=== PATIENT | female | born 1980 | race Caucasian/White ===

== ENCOUNTER 2021-05-14 10:34 | Day surgery (SDC) | payer BC ==
[~2021-05-14 10:34] MED LIST: HYDACE5 PO; MINO50 PO; PHENTERMINE; PROM25 PO; TAMS.4ER PO
[2021-05-14] MEDS ORDERED: SPIR50 PO (17:23)
[2021-05-14] MEDS ORDERED: DOXY100 PO (17:26)
[2021-05-14] MEDS ORDERED: CELEXA40 M1 PO (17:26)
[2021-05-14] MEDS ORDERED: BUDE.25 INH (17:27)
[2021-05-14] MEDS ORDERED: Ventolin/Prove6.7 GM INH (17:28)
== END 2021-05-14 19:25 | disposition home or self-care (01) ==
LOC: ATC 10:34
DX: U07.1 COVID-19 (principal); J45.909 Unspecified asthma, uncomplicated; Z88.2 Allergy status to sulfonamides
CPT/HCPCS: 96365; Q0243

== ENCOUNTER 2022-08-01 17:06 | Observation (INO) | payer BC ==
[~2022-08-01] VITALS: Ht 160 cm; Wt 72.6 kg
[~2022-08-01 17:06] MED LIST changes: +BUDE.25 INH; +CELEXA40 M1 PO; +DOXY100 PO; +SPIR50 PO; +Ventolin/Prove6.7 GM INH
[2022-08-01 17:55] LABS: BASOPHILS ABSOLUTE AUTO 0.02 K/mm3 (0.00-0.23); BASOPHILS PERCENT AUTO 0 % (0-2); EOSINOPHILS ABSOLUTE AUTO 0.07 K/mm3 (0.00-0.68); EOSINOPHILS PERCENT AUTO 1 % (0-6); Hematocrit 41.5 % (33.0-51.0); Hemoglobin 14.4 g/dL (11.5-16.0); IMMATURE GRAN ABSOLUTE AUTO 0.04 K/mm3 (0.00-0.10); IMMATURE GRAN PERCENT AUTO 0 % (0-1); LYMPHOCYTES PERCENT AUTO 22 % (21-46); MONOCYTES ABSOLUTE AUTO 0.72 K/mm3 (0.16-1.47); MONOCYTES PERCENT AUTO 8 % (4-13); Mean Corpuscular HGB 29.9 pg (26.0-34.0); Mean Corpuscular HGB Conc 34.7 g/dL (31.5-36.5); Mean Corpuscular Volume 86 fL (80-100); Mean Platelet Volume 10.8 fL (9.1-12.4); NEUTROPHILS ABSOLUTE AUTO 6.27 K/mm3 (1.96-9.15); NEUTROPHILS PERCENT AUTO 69 % (41-73); Platelet Count 301 K/mm3 (150-400); RDW Coefficient Variation 13.2 % (11.7-14.2); RDW Standard Deviation 41.1 fL (35.1-46.3); Red Blood Cell Count 4.82 M/mm3 (3.80-5.20); White Blood Cell Count 9.12 K/mm3 (4.00-11.30)
[2022-08-01 18:13] LABS: Albumin, Blood 4.2 g/dL (3.4-5.0); Albumin/Globulin Ratio 1.1 (0.8-1.8); Bilirubin, Total 0.9 mg/dL (0.1-1.0); Bun/Creatinine Ratio 13.8 (12.0-20.0); Calcium, Blood 9.5 mg/dL (8.5-10.1); Creatinine, Blood 0.73 mg/dL (0.40-1.00); Globulin, Blood 3.9 g/dL (2.2-4.0); Potassium, Blood 3.4 mmol/L (3.5-5.5); Total Protein, Blood 8.1 g/dL (6.4-8.2)
--- NOTE | 2022-08-02 01:05 | NUR ---
CARE ASSUMPTION: PATIENT TRANSFERRED FROM ED BY W/C WITH SPOUSE AT BEDSIDE. PATIENT 9/10 PAINFUL AND TEARFUL ON ADMIT. ONE TIME ORDER OF DILAUDID AND TORADOL CONTROLLED PAIN. PATIENT HAS COMPLETED PRE-SURGICAL CLEANSE, ADMIT COMPLETE, AND BLOOD CONSENT SIGNED. MEDICATED PER EMAR. BED LOW WITH CALL LIGHT IN REACH.
--- NOTE | 2022-08-02 05:06 | NUR ---
SHIFT SUMMARY: PATIENT DENIES CHEST PAIN/SOB, ENDORSES EPIGASTRIC PAIN 6-9/10 THAT DECREASES TO 4-5 WITH MEDICATION. ONE TIME ORDER OF 0.5 MG DILAUDID AND TORADOL KEPT PATIENT COMFORTABLE UNTIL 0500 - SEE EMAR FOR DETAILS. MEDICATED PER EMAR. AMBULATES TO TOILET. PLEASANT AND COOPERATIVE WITH CARE. PLAN FOR SURGERY TODAY. PATIENT NPO PRIOR TO MIDNIGHT. BED LOW WITH CALL LIGHT IN REACH. ADMISSION COMPLETE. WILL CONTINUE TO MONITOR UNTIL REPORT TO DAY RN.
--- NOTE | 2022-08-02 13:03 | NUR ---
DAY SURGERY RN TO ROOM. PT OFF UNIT AT THIS TIME.
--- NOTE | 2022-08-02 13:31 | NUR ---
PT BROUGHT FROM FLOOR TO DAY SURGERY FOR PROCEDURE. Patient confirms NPO status and agrees with scheduled surgery. Pre-Op teaching done. Pt verbalizes understanding.
--- NOTE | 2022-08-02 17:42 | NUR ---
PT ARRIVED BACK TO UNIT FROM PACU AT APROX 1730. LAP SITES X'S 4 W/GAUZE AND TEGADERM C/D/I. PT DENIES PAIN, N/V. WILL OFFER CLEAR LIQUIDS, ADVANCE TOLERATED.
--- NOTE | 2022-08-03 05:50 | NUR ---
SHIFT SUMMARY A/O X4- SBA/IND TO BATHROOM. POD1 LAP WINIFRED, 4 LAP SITES C/D/I. PAIN MANAGED W/ PO AND IV PAIN MEDICATIONS. TOLERATED SMALL AMOUNT OF PO INTAKE AND WATER THROUGHOUT SHIFT, NO N/V. BOWEL TONES ACTIVE-REPORTS PASSING FLATUS. VOIDING WELL. AMBULATING IN HALLWAY. NO ACUTE CHANGES THROUGHOUT SHIFT, WILL CONTINUE TO MONITOR AND REPORT TO ONCOMING RN.
--- NOTE | 2022-08-03 09:07 | NUR ---
UPON ENTERING PT ROOM AT APROX 0718 PT SCREAMING IN PAIN, UNCONSOLABLE-PT STATES "IT HURTS SO BAD" WHEN ASKED LOCATION OF PAIN PT REPORTS R "FRONT OF SHOULDER" PT MEDICATED WITH 0.5MG DILAUDID WITH NO RELIEF. DR MAGANA NOTIFED, ORDER FOR 30MG TORADOL NOW, SWITCH FROM HYDROCODONE TO PERCOCET 5/325MG 1-2 Q4 PRN PAIN. PERCOCET AND TORADOL ADMINISTERED AT 0744. DR MAGANA IN ROOM AT THAT TIME FOR ASSESSMENT. NEW VERBAL ORDER FOR VALIUM 2.5MG ONCE-ADMINISTERED AT 0748. WITHIN 30 MIN PT APPEARS MORE CALM AND RELAXED THOUGH STILL PAINFUL. ENCOURAGED TO REST/DEEP BREATHE. AT THIS TIME PT APPEARS TO BE SLEEPING COMFORTABLY
[2022-08-03] MEDS ORDERED: Percocet 5-3251 EACH PO (15:25)
--- NOTE | 2022-08-03 16:10 | NUR ---
DISCHARGE PT DISCHARGED HOME FROM UNIT AT APROX 1600. PT GIVEN WRITTEN AND VERBAL DC INSTRUCTIONS AND VERBALIZED UNDERSTANDING OF THESE INSTRUCTIONS. IV X'S 2 REMOVED. WRITTEN RX FOR PAIN MEDICATION GIVEN TO PT, COPY IN CHART. DECLINED WC TO CAR.
== END 2022-08-03 16:00 | disposition home or self-care (01) ==
LOC: ER 17:06 → SURS 20:52
PROVIDERS: Student in an Organized Health Care Education/Training Program; Surgery; ADMIT Surgery
PROC: 0FT44ZZ Resection of Gallbladder, Percutaneous Endoscopic Approach (ICD-10-PCS; principal; 2022-08-02 11:45)
DX: K80.00 Calculus of gallbladder with acute cholecystitis without obstruction (principal); Z79.899 Other long term (current) drug therapy; Z88.8 Allergy status to other drugs, medicaments and biological substances; Z88.2 Allergy status to sulfonamides
CPT/HCPCS: 36415; 76705; 80053; 83690; 85025; 88304; 93005; 93010; 96361; 96365; 96374; 96375; 96376; 99285-25; A9270; C1729; G0378; J0696; J1100; J1170; J1885; J2250; J2405; J2543; J2704; J2795; J3010; J7030; J7120

== ENCOUNTER 2022-12-16 16:18 | Emergency (ER) | payer BC ==
[~2022-12-16] VITALS: Ht 160 cm; Wt 83.9 kg
[~2022-12-16 16:18] MED LIST changes: +Percocet 5-3251 EACH PO
[2022-12-16 16:32] VITALS: BP 115/62
[2022-12-16] MEDS ORDERED: Norco 7.5-3251 EACH PO (17:55)
== END 2022-12-16 18:06 | disposition home or self-care (01) ==
LOC: ER 16:18
DX: M54.42 Lumbago with sciatica, left side (principal); Z88.2 Allergy status to sulfonamides; Z88.1 Allergy status to other antibiotic agents; Z79.899 Other long term (current) drug therapy
CPT/HCPCS: 99283

== ENCOUNTER → 2023-11-12 | Outpatient (CLI) | payer BC ==
[~2023-11-12] MED LIST changes: +Norco 7.5-3251 EACH PO
[2023-11-14 15:26] LABS: Campylobacter Sp Not Detected (NOT DETECT); Plesiomonas Shigelloides Not Detected (NOT DETECT); Salmonella Sp Not Detected (NOT DETECT)
[2023-11-14 15:27] LABS: Adenovirus F 40/41 Not Detected (NOT DETECT); Astrovirus Not Detected (NOT DETECT); Cryptosporidium Not Detected (NOT DETECT); Cyclospora Cayetanensis Not Detected (NOT DETECT); E. Coli O157 Not Detected (NOT DETECT); Entamoeba Histolytica Not Detected (NOT DETECT); Enteroaggregative E. coli-EAEC Not Detected (NOT DETECT); Enteropathogenic E. coli-EPEC Detected (NOT DETECT); Enterotoxigenic E. coli-ETEC Not Detected (NOT DETECT); Giardia Lamblia Not Detected (NOT DETECT); Norovirus GI/GII Not Detected (NOT DETECT); Rotavirus A Not Detected (NOT DETECT); Sapovirus Not Detected (NOT DETECT); Shiga Toxin-prod E. coli-STEC Not Detected (NOT DETECT); Shigella/Enteroin E. coli-EIEC Not Detected (NOT DETECT); Vibrio Cholerae Not Detected (NOT DETECT); Vibrio Sp Not Detected (NOT DETECT); Yersinia Enterocolitica Not Detected (NOT DETECT)
== END | disposition home or self-care (01) ==
LOC: LAB 14:35 → LAB SHORT 14:35
PROVIDERS: Family Medicine
DX: R19.7 Diarrhea, unspecified (principal)
CPT/HCPCS: 87507

== ENCOUNTER → 2024-08-16 | Outpatient (CLI) | payer BC ==
[2024-08-16 15:13] LABS: Bacterial Vaginosis PCR Negative (NEGATIVE); Candida Group, PCR NOT DETECTED (NOT DETECT); Candida glabrata-krusei, PCR NOT DETECTED (NOT DETECT)
== END ==
LOC: LAB 13:20 → LAB SHORT 13:20
PROVIDERS: Family Medicine
DX: N89.8 Other specified noninflammatory disorders of vagina (principal)
CPT/HCPCS: 81515

== ENCOUNTER → 2024-09-13 | Outpatient (CLI) | payer BC ==
[2024-09-14 12:39] LABS: Bacterial Vaginosis PCR Negative (NEGATIVE); Candida Group, PCR NOT DETECTED (NOT DETECT); Candida glabrata-krusei, PCR NOT DETECTED (NOT DETECT)
== END ==
LOC: LAB 19:33 → LAB SHORT 19:33
PROVIDERS: Physician Assistant
DX: N76.89 Other specified inflammation of vagina and vulva (principal); L29.2 Pruritus vulvae
CPT/HCPCS: 81515; 87070; 87077; 87186; 87205

== ENCOUNTER → 2024-09-13 | Outpatient (CLI) | payer BC ==
[2024-09-13 13:13] LABS: Bacterial Vaginosis PCR Negative (NEGATIVE); Candida Group, PCR NOT DETECTED (NOT DETECT); Candida glabrata-krusei, PCR NOT DETECTED (NOT DETECT)
== END ==
LOC: LAB 10:28 → LAB SHORT 10:28
PROVIDERS: Family Medicine
DX: N76.0 Acute vaginitis (principal)
CPT/HCPCS: 81515